=== PATIENT | male | born 1980 | race Caucasian/White ===

== ENCOUNTER → 2017-04-26 | Outpatient (CLI) | payer OTHER ==
[~2017-04-26] MED LIST: BACTRIM DS 8001 TA1 PO; KEFLEX500 MG PO; NKHM
== END | disposition home or self-care (01) ==
LOC: RAD 15:46
DX: M25.561 Pain in right knee (principal)

== ENCOUNTER → 2018-10-17 | Outpatient (CLI) | payer OTHER | END | disposition home or self-care (01) | LOC: RAD 15:57 | DX: M48.07 Spinal stenosis, lumbosacral region (principal); M41.86 Other forms of scoliosis, lumbar region ==